=== PATIENT | female | born 1945 | race Hispanic/Latino ===

== ENCOUNTER 2018-12-02 10:02 | Emergency (ER) | payer MEDICARE ==
[~2018-12-02] VITALS: Ht 162.6 cm; Wt 74.4 kg
--- OUTSIDE RECORDS SUMMARY | 2018-12-02 10:06 | XMS REPORT ---
Author Author [facility] Address Unknown Phone Unavailable Care Team Providers Care M1 Armor Crewman Name Role Phone Unavailable Unavailable Payers Payer Name Policy Type Policy Number Effective Date Expiration Date Problems This patient has no known problems. Allergies, Adverse Reactions, Alerts Allergy Name Allergy Type Status Severity Reaction(s) Onset Date Inactive Date Treating Clinician Comments No Known Allergies DA Active U 2018-10-06 00:00:00 Medications This patient has no known medications. Encounters Start Date/Time End Date/Time Encounter Type Admission Type Attending Clinicians [facility] [place] Facility Care Department Encounter ID 2018-09-06 05:24:50 Inpatient [facility] [id number] 2019-02-10 00:00:00 2019-02-10 00:00:00 Outpatient [facility] [id number] 2019-01-18 00:00:00 2019-01-18 00:00:00 Outpatient [facility] [id number] 2019-01-11 00:00:00 2019-01-11 00:00:00 Outpatient [facility] [id number] 2019-01-11 00:00:00 2019-01-11 00:00:00 Outpatient [facility] [id number] 2018-12-29 00:00:00 2018-12-29 00:00:00 Outpatient [facility] [id number] 2018-12-22 00:00:00 2018-12-22 00:00:00 Outpatient [facility] [id number] 2018-12-19 00:00:00 2018-12-19 00:00:00 Outpatient [facility] [id number] 2018-12-15 00:00:00 2018-12-15 00:00:00 Outpatient [facility] [id number] 2018-12-15 00:00:00 2018-12-15 00:00:00 Outpatient [facility] [id number] 2018-11-14 00:00:00 2018-11-14 00:00:00 Outpatient [facility] [id number] 2018-11-07 09:44:46 2018-11-07 09:44:46 Outpatient [facility] [id number] 2018-11-02 11:22:41 2018-11-02 11:22:41 Outpatient [facility] [id number] 2018-11-02 09:50:48 2018-11-02 09:50:48 Outpatient [facility] [id number] 2018-10-28 08:44:26 2018-10-28 08:44:26 Outpatient [facility] [id number] 2018-10-26 08:52:57 2018-10-26 08:52:57 Outpatient [facility] [id number] 2018-10-12 13:36:05 2018-10-12 13:36:05 Outpatient [facility] [id number] 2018-10-06 13:12:36 2018-10-06 13:12:36 Outpatient [facility] [id number] 2018-09-29 14:22:01 2018-09-29 14:22:01 Outpatient [facility] [id number] 2018-09-29 14:02:40 2018-09-29 14:02:40 Outpatient [facility] [id number] 2018-09-28 13:43:26 2018-09-28 13:43:26 Outpatient [facility] [id number] 2018-09-28 00:00:00 2018-09-28 00:00:00 Outpatient [facility] [id number] 2018-09-27 21:09:24 2018-09-27 21:09:24 Emergency [facility] [id number] 2018-09-27 21:08:24 2018-09-27 21:08:24 Emergency [facility] [id number] 2018-09-27 15:55:49 2018-09-27 15:55:49 Emergency [facility] [id number] 2018-09-27 13:47:11 2018-09-27 13:47:11 Emergency [facility] [id number] 2018-09-27 00:00:00 2018-09-27 00:00:00 Emergency [facility] [id number] 2018-09-27 00:00:00 2018-09-27 00:00:00 Emergency [facility] [id number] 2018-09-21 10:27:48 2018-09-21 10:27:48 Outpatient [facility] [id number] 2018-09-05 18:27:08 2018-09-05 18:27:08 Emergency [facility] [id number] 2018-09-05 15:25:11 2018-09-05 15:25:11 Emergency [facility] [id number] 2018-09-05 15:04:39 2018-09-05 15:04:39 Inpatient [facility] [id number] 2018-06-22 14:45:53 2018-06-22 14:45:53 Outpatient [facility] [id number] 2018-06-17 13:17:53 2018-06-17 13:17:53 Outpatient [facility] [id number] 2018-06-17 00:00:00 2018-06-17 00:00:00 Outpatient [facility] [id number] 2018-04-28 00:00:00 2018-04-28 00:00:00 Outpatient [facility] [id number] 2018-04-28 00:00:00 2018-04-28 00:00:00 Outpatient [facility] [id number] 2018-04-27 00:00:00 2018-04-27 00:00:00 Outpatient [facility] [id number] 2018-04-22 00:00:00 2018-04-22 00:00:00 Outpatient [facility] [id number] 2018-04-21 00:00:00 2018-04-21 00:00:00 Outpatient [facility] [id number] 2018-04-07 00:00:00 2018-04-07 00:00:00 Outpatient [facility] [id number] 2018-04-07 00:00:00 2018-04-07 00:00:00 Outpatient [facility] [id number] 2018-03-31 10:02:48 2018-03-31 10:02:48 Outpatient [facility] [id number] 2018-03-31 08:58:48 2018-03-31 08:58:48 Outpatient [facility] [id number] 2018-03-31 00:00:00 2018-03-31 00:00:00 Outpatient [facility] [id number] 2018-03-31 00:00:00 2018-03-31 00:00:00 Outpatient [facility] [id number] 2018-03-24 14:51:02 2018-03-24 14:51:02 Outpatient [facility] [id number] 2018-03-23 15:12:26 2018-03-23 15:12:26 Outpatient [facility] [id number] 2018-03-22 00:00:00 2018-03-22 00:00:00 Outpatient [facility] [id number] 2018-03-17 13:21:20 2018-03-17 13:21:20 Outpatient [facility] [id number] 2018-03-11 13:39:39 2018-03-11 13:39:39 Outpatient [facility] [id number] 2018-03-08 09:05:09 2018-03-08 09:05:09 Outpatient [facility] [id number] 2018-02-18 08:08:39 2018-02-18 08:08:39 Outpatient [facility] [id number] 2018-02-18 00:00:00 2018-02-18 00:00:00 Outpatient [facility] [id number] 2018-02-09 14:42:39 2018-02-09 14:42:39 Outpatient [facility] [id number] 2018-02-07 08:10:40 2018-02-07 08:10:40 Outpatient [facility] [id number] 2018-02-02 09:15:30 2018-02-02 09:15:30 Outpatient [facility] [id number] 2018-01-28 14:51:36 2018-01-28 14:51:36 Outpatient [facility] [id number] 2018-01-26 00:00:00 2018-01-26 00:00:00 Outpatient [facility] [id number] 2018-01-19 14:46:38 2018-01-19 14:46:38 Outpatient [facility] [id number] 2018-01-19 10:49:07 2018-01-19 10:49:07 Outpatient [facility] [id number] 2017-12-29 09:31:56 2017-12-29 09:31:56 Outpatient [facility] [id number] 2017-12-24 00:00:00 2017-12-24 00:00:00 Outpatient [facility] [id number] 2017-12-15 15:36:33 2017-12-15 15:36:33 Outpatient [facility] [id number] 2017-12-15 14:01:36 2017-12-15 14:01:36 Outpatient [facility] [id number] 2017-12-01 11:22:52 2017-12-01 11:22:52 Outpatient [facility] [id number] 2017-12-01 11:19:36 2017-12-01 11:19:36 Outpatient [facility] [id number] 2017-12-01 09:29:39 2017-12-01 09:29:39 Outpatient [facility] [id number] 2017-11-29 16:30:00 2017-11-29 16:30:00 Emergency [facility] [id number] 2017-11-29 00:00:00 2017-11-29 00:00:00 Outpatient [facility] [id number] 2017-11-24 11:40:06 2017-11-24 11:40:06 Outpatient [facility] [id number] 2017-11-24 09:24:26 2017-11-24 09:24:26 Outpatient [facility] [id number] 2017-11-24 00:00:00 2017-11-24 00:00:00 Outpatient [facility] [id number] 2017-11-22 00:00:00 2017-11-22 00:00:00 Outpatient [facility] [id number] 2017-11-06 09:19:23 2017-11-06 09:19:23 Outpatient [facility] [id number] 2017-11-04 00:00:00 2017-11-04 00:00:00 Outpatient [facility] [id number] 2017-11-03 09:47:05 2017-11-03 09:47:05 Outpatient [facility] [id number] 2017-11-03 08:46:24 2017-11-03 08:46:24 Outpatient [facility] [id number]
[2018-12-02] MEDS ORDERED: FLUOXETINE HCL20 MG PO (10:21)
[2018-12-02] MEDS ORDERED: NAMENDA10 MG PO (10:21)
--- NOTE | 2018-12-02 11:14 | Diagnostic Imaging Report ---
Exam: Right wrist radiographs-3 views History: Status post fall. Comparison: None. Findings: No evidence of acute fracture, malalignment, or soft tissue abnormality. There are mild radiocarpal and first carpometacarpal joint degenerative changes. Impression: No acute radiographic abnormality. Signed by: Dr. Liz Morin MD on 12/02/2018 11:10 AM
--- NOTE | 2018-12-02 11:18 | NUR ---
PT TO ROOM 7, ASSUMED CARE AT THIS TIME. BREATHING EVEN/UNLABORED, NAD NOTED, V/S/S. PT DENIES ANY PAIN OR DISCOMFORT AT THIS TIME, LARGE HEMATOMA REMAINS WITHOUT BLEEDING, FAMILY AT BEDSIDE ASSISTING WITH APPLICATION OF ICE PACK, WILL CONTINUE TO MONITOR.
--- NOTE | 2018-12-02 11:19 | Diagnostic Imaging Report ---
Exams: Head and cervical spine CTs without IV contrast History: Trauma, fall, pain Comparison studies: None Technique: Axial images were obtained from the brain and cervical spine. Coronal and sagittal images reconstructed from the axial data. Dose modulation, iterative reconstruction, and/or weight based adjustment of the mA/kV was utilized to reduce the radiation dose to as low as reasonably achievable. Intravenous contrast: None Findings: Head CT: Scalp: Right parieto-occipital scalp hematoma.. Bones: No fractures, blastic or lytic lesions. Extra-axial spaces: No masses. No fluid collections. Brain sulci: Mildly prominent. Ventricles: Mild compensatory dilatation. No hydrocephalus. Parenchyma: No mass, acute hemorrhage or cortical insults. Mild age-related hypodense changes in the periventricular white matter. Sellar/suprasellar region: No abnormalities. Craniocervical junction: The foramen magnum is patent. No Chiari one malformation. Cervical spine CT: Fractures: None. Soft tissues: No gross acute abnormalities. Atlantoaxial articulation: Intact. Alignment: Straightened cervical curvature. No subluxations. Minimal anterolisthesis of C4 on C5 and C7 on T1 are most likely degenerative in etiology. Cervicomedullary junction: No abnormalities. The foramen magnum is patent. Vertebrae: No infection or neoplasm. Mild chronic depression deformity of the superior C6 endplate without significant height loss. Degenerative changes: Multilevel disc degeneration, greatest/moderate at C5-C6 and at C6-C7. Disc osteophyte complexes from C3 to C7 indent the thecal sac but do not result in significant canal stenosis. Multilevel uncovertebral facet arthrosis with multilevel foraminal stenosis (mild bilaterally at C3-C4 moderate right and mild left at C6-C7 and mild left at C7-T1). Incidental findings: Left lens for previous scattered surgery. Calcified left inferior thyroid lobe nodule for which no further workup is necessary by imaging criteria. IMPRESSION: Head CT: 1. Right parieto-occipital scalp hematoma without underlying fracture. 2. No acute intracranial abnormalities. 3. Mild generalized brain volume loss with mild age-related white matter changes. Cervical spine CT: 1. No acute cervical spine fracture or acute subluxation. 2. Multilevel degenerative changes as described. 3. Cannot exclude ligament, spinal cord and or vascular abnormalities on the basis of this examination. Signed by: Dr. Jarocho Paez M.D. on 12/02/2018 11:16 AM
--- NOTE | 2018-12-02 11:29 | Diagnostic Imaging Report ---
History: Trauma, pain Comparison studies: None Technique: Axial images were obtained through the lumbar spine. Coronal and sagittal images reconstructed from the axial data. Dose modulation, iterative reconstruction, and/or weight based adjustment of the mA/kV was utilized to reduce the radiation dose to as low as reasonably achievable. Intravenous contrast: None Findings: Transitional lumbosacral anatomy with partially sacralized L5 vertebral body with pseudoarthrosis on the right. Alignment: Straightened lumbar curvature may be positional. No significant scoliosis. No subluxations. Soft tissues: No gross acute abnormalities. Scattered calcified atherosclerosis throughout the abdominal aorta. Sigmoid colonic diverticulosis. Paraspinal muscles: Moderate to severe dorsal paraspinal muscular atrophy on the left from L4 through S1 moderately atrophic dorsal paraspinal musculature on the right from L5 through S1. Sacroiliac joints: Mild degenerative changes bilaterally. Vertebrae: No fractures, infection or neoplasm. Degenerative changes: L1-L2: Mildly degenerated disc with mild facet arthrosis. Patent canal and foramina. L2-L3: Mildly degenerated disc. Disc bulge, thickened and partially calcified thickened ligamentum flavum without significant canal or foraminal stenosis. L3-L4: Mildly degenerated disc. Asymmetric right disc bulge, thickened ligamentum flavum and mild facet arthrosis without significant canal or foraminal stenosis. L4-L5: Moderately degenerated disc with loss of disc height and vacuum phenomenon. Disc bulge and bilateral foraminal disc osteophyte complexes, thickened ligamentum flavum and facet arthrosis with mild canal stenosis and moderate left and mild right foraminal stenosis. L5-S1: Moderately degenerated disc. Asymmetric left disc osteophyte complex, thickened ligamentum flavum and facet arthrosis with mild canal stenosis and severe left foraminal stenosis. Patent right foramen. IMPRESSION: 1. No lumbar spine fracture or subluxation. 2. Multilevel degenerative changes most notable for moderately degenerated L4-L5 and L5-S1 discs, moderate left L4-L5 and severe left L5-S1 foraminal stenosis. Signed by: Dr. Jarocho Paez M.D. on 12/02/2018 11:25 AM
[2018-12-02 12:05] VITALS: BP 164/83
== END 2018-12-02 12:13 | disposition home or self-care (01) ==
LOC: ER 10:02
DX: S00.83XA Contusion of other part of head, initial encounter (principal); W01.0XXA Fall on same level from slipping, tripping and stumbling without subsequent striking against object, initial encounter; Y92.008 Other place in unspecified non-institutional (private) residence as the place of occurrence of the external cause; M25.531 Pain in right wrist; G30.9 Alzheimer's disease, unspecified; F02.80 Dementia in other diseases classified elsewhere, unspecified severity, without behavioral disturbance, psychotic disturbance, mood disturbance, and anxiety; F32.9 Major depressive disorder, single episode, unspecified
CPT/HCPCS: 70450; 72125; 72131; 99283

== ENCOUNTER 2019-07-14 18:43 | Emergency (ER) | payer MEDICARE ==
[~2019-07-14 18:43] MED LIST: FLUOXETINE HCL20 MG PO; NAMENDA10 MG PO
--- NOTE | 2019-07-14 18:48 | NUR ---
DECIDED TO LEAVE, CLAIMS SHE FELT BETTER, WILL COME BACK IF SICK LATER
== END 2019-07-14 18:57 | disposition short-term general hospital (02) ==
LOC: ER 18:43
DX: R69 Illness, unspecified (principal)

== ENCOUNTER 2019-12-04 21:25 | Emergency (ER) | payer MEDICARE ==
[~2019-12-04] VITALS: Ht 162.6 cm; Wt 74.4 kg
[2019-12-04] MEDS ORDERED: ONDANSETRON HCL 4 MG ORAL DISINTEGRATING TAB PO ONE (22:30)
--- NOTE | 2019-12-04 23:39 | Diagnostic Imaging Report ---
EXAMINATION: Head and cervical spine CT without contrast. HISTORY: Status post fall, trauma, pain COMPARISON: None. TECHNIQUE: Multidetector axial images were obtained without contrast from the foramen magnum to the vertex and through the cervical spine. The images were reconstructed using brain and bone algorithms. Thin section brain images were reformatted into coronal and sagittal planes. Dose modulation, iterative reconstruction, and/or weight based adjustment of the mA/kV was utilized to reduce the radiation dose to as low as reasonably achievable. HEAD CT FINDINGS: Skull/scalp: No lytic or blastic lesions. Left frontal scalp swelling without underlying fractures. Parenchyma: Few scattered white matter hypodensities, most likely nonspecific chronic microvascular ischemic changes. No mass, hemorrhage or CT evidence of acute vascular insult. Brain volume: Mild generalized parenchymal volume loss. Ventricles: No hydrocephalus or displacement. Arteries: No density suggestive of thrombus. Dural sinuses: No abnormal density. Extra-axial spaces: No abnormal density. Foramen magnum: No mass, Chiari malformation, or basilar invagination. Sella: No obvious mass. Paranasal/mastoid sinuses: Imaged portions unremarkable. CERVICAL SPINE CT FINDINGS: Alignment:Normal alignment and lordosis. Soft tissues: Normal. Vertebrae: Normal height and density. No acute fracture, infection or neoplasm. Degenerative changes: C1-C2: Normal C2-C3: Normal C3-C4: Normal C4-C5: Uncovertebral and facet arthrosis without significant stenosis. C5-C6: Disc osteophyte complex formation and uncovertebral arthrosis. Moderate right and mild left foraminal stenosis. C6-C7: Disc osteophyte complex formation and uncovertebral arthrosis. Mild foraminal stenosis. C7-T1: Normal IMPRESSION: Head CT: 1. No acute postraumatic intracranial hemorrhage. 2. Small left frontal scalp swelling without underlying fractures. 3. Mild chronic microvascular ischemic changes. Cervical spine CT: 1. No acute fractures or dislocations. 2. Chronic degenerative changes as described. Note: Acute post traumatic spinal cord, vascular or ligamentous injury cannot adequately be assessed with CT. Signed by: Dr. Francesca Molina M.D. on 12/04/2019 11:36 PM
== END 2019-12-05 00:33 | disposition home or self-care (01) ==
LOC: ER 21:25
DX: S00.83XA Contusion of other part of head, initial encounter (principal); S00.33XA Contusion of nose, initial encounter; S00.212A Abrasion of left eyelid and periocular area, initial encounter; W18.30XA Fall on same level, unspecified, initial encounter; Y92.488 Other paved roadways as the place of occurrence of the external cause; G30.9 Alzheimer's disease, unspecified; F02.80 Dementia in other diseases classified elsewhere, unspecified severity, without behavioral disturbance, psychotic disturbance, mood disturbance, and anxiety; F32.9 Major depressive disorder, single episode, unspecified
CPT/HCPCS: 70450; 72125; 99283; Q0162

== ENCOUNTER 2020-03-07 09:24 | Emergency (ER) | payer MEDICARE ==
[~2020-03-07] VITALS: Ht 162.6 cm; Wt 74.4 kg
--- NOTE | 2020-03-07 09:35 | Emergency Department Note ---
History of Present Illnes History of Present Illness Chief Complaint: General Medicine Complaints History of Present Illness This is a 74 year old female arrived to the in the ED with pain behind her head for several days intermittent. Historian: Patient Arrival Mode: Car Onset (how long ago): day(s) Severity: mild Onset quality: gradual Duration (how long): day(s) Timing of current episode: intermittent Progression: waxing and waning Chronicity: new Relieving factors: none Exacerbating factors: none Past Medical/Family History Physician Review I have reviewed the patient's past medical and family history. Any updates have been documented here. Past Medical History Recent Fever: No Clinical Suspicion of Infectio: No New/Unexplained Change in Ment: No Past Medical History: Depression Other Medical History: Alzhemiers Past Surgical History: Cholecysctectomy, Hysterectomy Social History Smoking Cessation: Never Smoker Alcohol Use: None Physically hurt or threatened: No Other Last Tetanus: UNK Review of Systems Review of Systems Constitutional: Reports no symptoms EENTM: Reports no symptoms Cardiovascular: Reports no symptoms Respiratory: Reports no symptoms Gastrointestinal: Reports no symptoms Genitourinary: Reports no symptoms Musculoskeletal: Reports no symptoms Integumentary: Reports no symptoms Neurological: Reports as per HPI, Reports headache Psychological: Reports no symptoms Endocrine: Reports no symptoms Hematological/Lymphatic: Reports no symptoms Physical Exam Related Data Allergies: Coded Allergies: No Known Allergies (Unverified , 12/02/18) Triage Vital Signs Vital Signs Date Time Temp Pulse Resp B/P (MAP) Pulse Ox O2 Delivery O2 Flow Rate FiO2 03/07/20 09:27 Room Air Vital signs reviewed: Yes Physical Exam CONSTITUTIONAL Constitutional: Present well-developed, Present well-nourished HENT HENT: Present normocephalic, Present atraumatic, Present oropharynx clear/moist, Present nose normal HENT L/R: Present left ext ear normal, Present right ext ear normal EYES Eyes: Reports PERRL, Reports conjunctivae normal NECK Neck: Present ROM normal PULMONARY Pulmonary: Present effort normal, Present breath sounds normal CARDIOVASCULAR Cardiovascular: Present regular rhythm, Present heart sounds normal, Present capillary refill normal, Present normal rate GASTROINTESTINAL Abdominal: Present soft, Present nontender, Present bowel sounds normal GENITOURINARY Genitourinary: Present exam deferred SKIN Skin: Present warm, Present dry MUSCULOSKELETAL Musculoskeletal: Present ROM normal NEUROLOGICAL Neurological: Present alert, Present no gross motor or sensory deficits PSYCHOLOGICAL Psychological: Present mood/affect normal, Present judgement normal Assessment & Plan Medical Decision Making MDM 74-year-old female arrived to the ED with pain over the posterior right side of her head along the insertion point of the trapezius, no palpable abscess, ropey tenderness appreciated, patient with no neuro deficits. Pt stable for d/c. Assessment & Plan Final Impression: (1) Scalp pain Depart Disposition: HOME, SELF-CARE Last Vital Signs Date Time Temp Pulse Resp B/P (MAP) Pulse Ox O2 Delivery O2 Flow Rate FiO2 03/07/20 09:27 Room Air Home Meds Reported Medications Fluoxetine Hcl (FLUOXETINE HCL) 20 Mg Capsule, 20 MG PO DAILY, #30 CAP 12/02/18 Memantine Hcl (NAMENDA) 10 Mg Tablet, 5 MG PO BID, #30 TAB 12/02/18 BRANDI QUINTANA DO Mar 07, 2020 09:35
== END 2020-03-07 09:34 | disposition home or self-care (01) ==
LOC: ER 09:30
DX: R52 Pain, unspecified (principal); G30.9 Alzheimer's disease, unspecified; F02.80 Dementia in other diseases classified elsewhere, unspecified severity, without behavioral disturbance, psychotic disturbance, mood disturbance, and anxiety; F32.9 Major depressive disorder, single episode, unspecified
CPT/HCPCS: 99282